=== PATIENT | male | born 1995 | race Caucasian/White ===

== ENCOUNTER 2017-07-14 20:27 | Emergency (ER) | payer MEDICAID, SELFPAY ==
[2017-07-14 20:29] VITALS: BP 160/77; PULSE 80; RESP 18; TEMP 37.1; O2SAT 97; BMI 20.5
--- NOTE | 2017-07-14 21:18 | ED.VISSUMM ---
- ER Visit Summary Date of Service: 07/14/17 Chief Complaint: Laceration History of Present Illness: The patient is a 22 M presents to the emergency department with laceration to his left thumb. Patient is right-handed dominant. He was at work and was cutting a box. The box maker paperboard went into his left thumb. He had no significant pain. He denies any numbness or tingling. He is unsure of his last tetanus. He takes no daily medications. He did place a bandage on and presented to the emergency department. Physical Examination: Exam is relatively unremarkable. Patient has a 2 cm full-thickness laceration the palmar aspect of the proximal phalanges of the left thumb towards the lateral edge. Two-point disc herniation is preserved. Cap refill is less than 2 seconds. Flexor profundus and superficialis are intact. Abductors are intact. Test Results: [] Emergency Department Course and Treatment: The patient's tetanus was updated. His wound was anesthetized and irrigated. It is explored. There is no evidence of tendinous injury. The patient had his wound closed with 5 simple interrupted suture. He tolerated this without issue. Bacitracin dressing was applied. The patient was counseled on wound care and reasons to return. He will be discharged home, follow-up with any change in wound, drainage, redness. He will follow-up in 10 days for suture removal. Treatment Plan: [] Disposition: Discharge Impression: 1. 2 cm left thumb laceration with repair This note was generated with [employer] dictation software. It may contain incorrect words, spelling, and punctuation that were not noted in review of the chart prior to signing ED Disposition - Plan for ED Patient: Chief Complaint: Laceration Instructions: ED Laceration Hand Referrals: Iona Riojas [NON-STAFF] - 10 Day for suture removal
--- NOTE | 2017-07-14 21:21 | ED.DCSUM_ITS ---
- ER Visit Summary Date of Service: 07/14/17 Chief Complaint: Laceration History of Present Illness: The patient is a 22 M presents to the emergency department with laceration to his left thumb. Patient is right-handed dominant. He was at work and was cutting a box. The box nailer went into his left thumb. He had no significant pain. He denies any numbness or tingling. He is unsure of his last tetanus. He takes no daily medications. He did place a bandage on and presented to the emergency department. Physical Examination: Exam is relatively unremarkable. Patient has a 2 cm full- thickness laceration the palmar aspect of the proximal phalanges of the left thumb towards the lateral edge. Two-point disc herniation is preserved. Cap refill is less than 2 seconds. Flexor profundus and superficialis are intact. Abductors are intact. Test Results: [] Emergency Department Course and Treatment: The patient's tetanus was updated. His wound was anesthetized and irrigated. It is explored. There is no evidence of tendinous injury. The patient had his wound closed with 5 simple interrupted suture. He tolerated this without issue. Bacitracin dressing was applied. The patient was counseled on wound care and reasons to return. He will be discharged home, follow-up with any change in wound, drainage, redness. He will follow-up in 10 days for suture removal. Treatment Plan: [] Disposition: Discharge Impression: 1. 2 cm left thumb laceration with repair This note was generated with [employer] dictation software. It may contain incorrect words, spelling, and punctuation that were not noted in review of the chart prior to signing ED Disposition - Plan for ED Patient: Chief Complaint: Laceration Instructions: ED Laceration Hand Referrals: Iona Riojas [NON-STAFF] - 10 Day for suture removal
[2017-07-14] MEDS: Diphth,Pertuss(Acell),Tet Vac 0.5 ML Vial IM (21:23)
== END 2017-07-14 21:49 | disposition home or self-care (01) ==
LOC: ED 21:47
PROVIDERS: Emergency Provider Emergency Medicine
DX: S61.012A Laceration without foreign body of left thumb without damage to nail, initial encounter (principal); Z23 Encounter for immunization; Z72.0 Tobacco use; W26.0XXA Contact with knife, initial encounter; Y93.89 Activity, other specified; Y92.89 Other specified places as the place of occurrence of the external cause; Y99.0 Civilian activity done for income or pay
CPT/HCPCS: 12001; 90715; 99284

== ENCOUNTER 2017-11-05 19:54 | Emergency (ER) | payer MEDICAID, SELFPAY ==
[2017-11-05 19:56] VITALS: BP 118/60; PULSE 67; RESP 18; TEMP 36.7; O2SAT 97; BMI 21.2
--- NOTE | 2017-11-05 20:27 | CT_ITS ---
STUDY: CT ORBITS WITHOUT CONTRAST REASON FOR EXAM: Male, 22 years old. Dog scratch right eye. RADIATION DOSAGE (If Supplied By Facility): CTDIvol = ( 33.45 ) mGy, DLP = ( 303.00 ) mGycm TECHNIQUE: The patient was scanned in a multi detector CT scanner. Transaxial imaging was performed without the administration of intravenous contrast material. Sagittal and coronal images were reconstructed. Individualized dose optimization techniques were used for this CT. COMPARISON: None. FINDINGS: Normal globes. Normal intraconal spaces. Normal optic nerve sheath complex. Normal bilateral extraocular muscles. Normal lacrimal glands. Normal bilateral medial and inferior orbital mccormick. Normal bilateral maxillary bones. Normal bilateral frontozygomatic arches. Normal bilateral zygomatic temporal arches. Normal frontal sinus. Normal ethmoidal sinuses. Normal maxillary sinuses. Normal sphenoid sinuses. There is right periorbital soft tissue swelling extending across midline of the [address]/Orb Sella Post Fossa Ear w/o IMPRESSION: Right periorbital superior soft tissue swelling extending across midline of the 4 head most concerning for preorbital cellulitis with no evidence of intraconal extension. Electronically Signed: Jesus Vega DO at 21:08 EDT , Service support ,
[2017-11-05] MEDS: Fluorescein 1 MG STRIP 1 STRIP RIGHT EYE (21:21)
--- NOTE | 2017-11-05 21:56 | ED.DCSUM_ITS ---
- ER Visit Summary Date of Service: 11/05/17 Chief Complaint: Right eye injury History of Present Illness: The patient is a 22 M who states he was hit in the right eye by his dog today. Patient describes his dog raising his paw and hitting him directly in the eye almost as if he was giving him a high 5. He denies being scratched by the claws. Patient states he feels with this and then pushing down the top of his eye. He does have increased pain whenever he looks down. He does not wear glasses or contacts. Physical Examination: Vital signs unremarkable. Patient's lying in a darkened room. Head neck examination reveals abrasion just lateral to the right eye. There is no periorbital bony tenderness. I itself is not injected. Pupils are equal and reactive. Extraocular movements are fully intact he does have increased pain whenever he looks down. Remainder physical examination is unremarkable. Test Results: CT the orbits was obtained and is significant only for periorbital soft tissue swelling. No evidence of hematoma around the globe. Left eye visual acuity is 20/15, right eye 20/25. Emergency Department Course and Treatment: After a couple doses of tetracaine patient states his pain is improved. I did fluorescein his eyes but did not see any focal uptake. I spoke with . We will go ahead and cover patient with antibiotic drops and he will be seen in the office tomorrow for follow-up. Treatment Plan: [] Disposition: Discharge Impression: Blunt injury right eye This note was generated with [employer] dictation software. It may contain incorrect words, spelling, and punctuation that were not noted in review of the chart prior to signing ED Disposition - Plan for ED Patient: Disposition: Home or Assisted Living Chief Complaint: Eye Problem Instructions: ED Eye Injury Corneal Abrasion Referrals: Pedro Coombs MD [STAFF PHYSICIAN] - 1 Day Additional Instructions: Call Dr Coombs's office tomorrow morning to be seen for follow-up
--- NOTE | 2017-11-05 21:59 | DCINST.ED_ITS ---
ED Disposition - Plan for ED Patient: Disposition: Home or Assisted Living Chief Complaint: Eye Problem Instructions: ED Eye Injury Corneal Abrasion Referrals: Pedro Coombs MD [STAFF PHYSICIAN] - 1 Day Additional Instructions: Call Dr Coombs's office tomorrow morning to be seen for follow-up
[2017-11-05 22:05] VITALS: BP 122/75; PULSE 58; O2SAT 96
[2017-11-05] MEDS: Gentamicin Sulfate 1 OPTH.BTL 2 DRP RIGHT EYE (22:05)
== END 2017-11-05 22:07 | disposition home or self-care (01) ==
PROVIDERS: Emergency Provider Emergency Medicine
DX: S05.8X1A Other injuries of right eye and orbit, initial encounter (principal); Z72.0 Tobacco use; W54.1XXA Struck by dog, initial encounter; Y93.89 Activity, other specified; Y92.009 Unspecified place in unspecified non-institutional (private) residence as the place of occurrence of the external cause; Y99.8 Other external cause status
CPT/HCPCS: 70480; 99283

== ENCOUNTER 2018-02-22 08:30 | Emergency (ER) | payer MEDICAID, SELFPAY ==
[2018-02-22 08:31] VITALS: BP 141/71; PULSE 62; RESP 16; TEMP 36.5; O2SAT 99; BMI 21.9
--- NOTE | 2018-02-22 08:44 | ED.VISSUMM ---
- ER Visit Summary Date of Service: 02/22/18 Chief Complaint: [Rash] History of Present Illness: The patient is a 22 M [presents the emergency department complaint of a rash to his face that started yesterday. Patient denies any new soaps, detergents, or perfumes. Patient states that he showed somebody's hand at work that had a similar rash on his face and then he forgot to wash his hands. Patient describes burning and swelling to his face. He denies any new medications. He denies any contact with poison aden or poison oak. He is not done any yard work. She has not been ill.] Physical Examination: [HEENT-PERRLA, EOMI. Cranial nerves II through XII grossly intact. TMs clear. Mucous membranes moist. No adenopathy. Cardiovascular-regular rate and rhythm without murmur or ectopy Lungs-clear to auscultation, chest wall stable without crepitus or subcu emphysema Abdomen-normoactive bowel sounds, soft, nontender, no rebound or rigidity, no peritoneal signs. Skin exam-patient has a erythematous rash involving the periorbital regions as well as the forehead and face with slightly edematous tissue noted and punctate vesicular-like lesions consistent with a contact dermatitis. Extremities-intact ?4, normal range of motion, normal pulses, atraumatic] Test Results: [None indicated] Emergency Department Course and Treatment: [Patient was given a dose of prednisone 40 mg p.o.] Treatment Plan: [Patient will be treated with prednisone and referred to primary care physician environmental engineering manager for no doc for follow-up within next 5-7 days. Patient continue with Benadryl as needed for itching and advised to use some cool compresses to his face.] Disposition: [Discharged home in stable condition] Impression: [Contact dermatitis] This note was generated with [employer] dictation software. It may contain incorrect words, spelling, and punctuation that were not noted in review of the chart prior to signing ED Disposition - Plan for ED Patient: Chief Complaint: Rash Referrals: Care Physician,No Primary [Primary Care Provider] -
--- NOTE | 2018-02-22 08:47 | ED.DCSUM_ITS ---
- ER Visit Summary Date of Service: 02/22/18 Chief Complaint: [Rash] History of Present Illness: The patient is a 22 M [presents the emergency department complaint of a rash to his face that started yesterday. Patient denies any new soaps, detergents, or perfumes. Patient states that he showed somebody's hand at work that had a similar rash on his face and then he forgot to wash his hands. Patient describes burning and swelling to his face. He denies any new medications. He denies any contact with poison aden or poison oak. He is not done any yard work. She has not been ill.] Physical Examination: [HEENT-PERRLA, EOMI. Cranial nerves II through XII grossly intact. TMs clear. Mucous membranes moist. No adenopathy. Cardiovascular-regular rate and rhythm without murmur or ectopy Lungs-clear to auscultation, chest wall stable without crepitus or subcu emphysema Abdomen-normoactive bowel sounds, soft, nontender, no rebound or rigidity, no peritoneal signs. Skin exam-patient has a erythematous rash involving the periorbital regions as well as the forehead and face with slightly edematous tissue noted and punctate vesicular-like lesions consistent with a contact dermatitis. Extremities-intact ?4, normal range of motion, normal pulses, atraumatic] Test Results: [None indicated] Emergency Department Course and Treatment: [Patient was given a dose of prednisone 40 mg p.o.] Treatment Plan: [Patient will be treated with prednisone and referred to primary care physician [employer] for no doc for follow-up within next 5-7 days. Patient continue with Benadryl as needed for itching and advised to use some cool compresses to his face.] Disposition: [Discharged home in stable condition] Impression: [Contact dermatitis] This note was generated with [employer] dictation software. It may contain incorrect words, spelling, and punctuation that were not noted in review of the chart prior to signing ED Disposition - Plan for ED Patient: Chief Complaint: Rash Referrals: Care Physician,No Primary [Primary Care Provider] -
--- NOTE | 2018-02-22 08:47 | ED.DEP ---
ED Disposition - Plan for ED Patient: Chief Complaint: Rash Instructions: ED Dermatitis Contact Prescriptions: Prednisone [Deltasone] 20 mg PO BID #10 tab Referrals: Care Physician,No Primary [Primary Care Provider] - John Busby DO [NON CLINICAL AFFILIATE] - 5-7 Days
[2018-02-22] MEDS: predniSONE 20 MG Tablet 40 MG PO (09:02)
== END 2018-02-22 09:12 | disposition home or self-care (01) ==
LOC: ED 08:48
PROVIDERS: Emergency Provider Emergency Medicine
DX: L25.9 Unspecified contact dermatitis, unspecified cause (principal); Z72.0 Tobacco use
CPT/HCPCS: 99283

== ENCOUNTER 2019-05-31 18:13 | Emergency (ER) | payer MEDICAID, SELFPAY ==
[2019-05-31 18:14] VITALS: BP 120/79; PULSE 95; RESP 21; TEMP 36.8; O2SAT 97; BMI 24.1
[2019-05-31 18:18] VITALS: O2SAT 96
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
[2019-05-31] MEDS: Diphth,Pertuss(Acell),Tet Vac 0.5 ML Vial IM (18:55)
[2019-05-31 19:37] VITALS: BP 125/86; PULSE 70; RESP 12; O2SAT 98
[2019-05-31] MEDS: HYDROcodone Bitartrate/Apap 5/325 Tablet PO (19:41)
[2019-05-31 20:23] VITALS: BP 103/63; PULSE 84; RESP 17; O2SAT 96
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
--- NOTE | 2019-05-31 21:20 | DCINST.ED_ITS ---
ED Disposition - Plan for ED Patient: Instructions: CONCUSSION, No Wake Up, LACERATION, Scalp Prescriptions: Hydrocodone Bitart/Apap 5-325 [[place] 5MG-325MG] 1 tab PO Q6H PRN PRN 3 Days #10 tab PRN Reason: Pain Prescription Printed Referrals: Inoa Riojas [NON-STAFF] -
[2019-05-31 21:37] VITALS: BP 117/65; PULSE 81; RESP 17; O2SAT 97
== END 2019-05-31 21:38 | disposition home or self-care (01) ==
LOC: ED 18:26
PROVIDERS: Emergency Provider Emergency Medicine
DX: S01.01XA Laceration without foreign body of scalp, initial encounter (principal); S16.1XXA Strain of muscle, fascia and tendon at neck level, initial encounter; S50.312A Abrasion of left elbow, initial encounter; S80.811A Abrasion, right lower leg, initial encounter; Z23 Encounter for immunization; Z72.0 Tobacco use; Y04.2XXA Assault by strike against or bumped into by another person, initial encounter; Y93.89 Activity, other specified; Y92.89 Other specified places as the place of occurrence of the external cause; Y99.8 Other external cause status
CPT/HCPCS: 12002; 70450; 72125; 73080; 73590; 90471; 90715; 99284

== ENCOUNTER → 2019-06-10 | Outpatient (CLI) | payer MEDICAID, SELFPAY ==
[2019-05-31 18:14] VITALS: BMI 24.1
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
== END | disposition home or self-care (01) ==
LOC: US 15:20
PROVIDERS: Referring Provider Nurse Practitioner Family
DX: M54.5 Low back pain (principal); R10.12 Left upper quadrant pain
CPT/HCPCS: 72100; 76700